=== PATIENT | male | born 1985 | race African-American/Black ===

== ENCOUNTER 2022-03-02 23:21 | Emergency (ER) | payer SELFPAY ==
[2022-03-03] MEDS ORDERED: Acetaminophen 500 MG TAB ONE (00:11)
[2022-03-03] MEDS ORDERED: Ketorolac Tromethamine 30 MG/ML VIAL ONE (00:11)
== END 2022-03-03 00:50 | disposition home or self-care (01) ==
LOC: CSHERS 23:21
DX: S22.31XA Fracture of one rib, right side, initial encounter for closed fracture (principal); F17.210 Nicotine dependence, cigarettes, uncomplicated; X50.9XXA Other and unspecified overexertion or strenuous movements or postures, initial encounter
CPT/HCPCS: 71046; 93005; 96372; J1885